=== PATIENT | female | born 1990 | race Two or more races ===

== ENCOUNTER → 2024-08-03 | Emergency (ER) | payer OTHER ==
[~2024-08-03] VITALS: Ht 165.1 cm; Wt 74.8 kg
[~2024-08-03] MED LIST: PRENATABS RX T1 EACH
[2024-08-03 17:24] LABS: HEMATOCRIT 36.7 % (36.0-45.00); HEMOGLOBIN 12.4 g/dL (12.0-15.00); MEAN CELL VOLUME 88.4 fL (80.00-100.00); MEAN CORPUSCULAR HEMOGLOBIN 29.8 pg (27.00-32.0); MEAN CORPUSCULAR HGB CONC 33.7 g/dl (32.0-36.0); PLATELET COUNT 261 K/uL (150-450); RED BLOOD COUNT 4.15 M/uL (4.00-6.00)
[2024-08-03 17:37] LABS: URINE APPEARANCE Clear; URINE BACTERIA 2021.7 uL (0.0-1933); URINE BILIRRUBIN Negative (NEGATIVE); URINE BLOOD Negative; URINE COLOR Yellow; URINE EPITHELIAL CELLS 43.9 uL (0.0-38.8); URINE GLUCOSE Negative (NEGATIVE); URINE KETONE Trace (NEGATIVE); URINE LEUKOCYTE Negative; URINE NITRATE Negative; URINE PROTEIN Negative (NEGATIVE); URINE RBC 12.9 uL (0.0-20.8); URINE WBC 4.5 uL (0.0-23.2)
[2024-08-03 17:45] LABS: CREATININE SERUM 0.59 mg/dL (0.55-1.02); GFR 118.12; POTASSIUM 4.15 mEq/L (3.5-5.1)
== END | disposition home or self-care (01) ==
LOC: ER 15:14
PROVIDERS: General Practice
DX: O23.31 Infections of other parts of urinary tract in pregnancy, first trimester (principal); Z3A.01 Less than 8 weeks gestation of pregnancy; N39.0 Urinary tract infection, site not specified; K29.70 Gastritis, unspecified, without bleeding; Z91.040 Latex allergy status

== ENCOUNTER 2024-09-16 23:32 | Emergency (ER) | payer OTHER ==
[~2024-09-16] VITALS: Ht 165.1 cm; Wt 72.6 kg
[2024-09-17] MEDS ORDERED: METOCLOPRAMIDE HCL 5 MG/ML VIAL IM STA (01:03)
[2024-09-17] MEDS ORDERED: PROMETHAZINE HCL 25 MG/ML AMPUL IM STA (01:03)
[2024-09-17] MEDS ORDERED: METOCLOPRAMIDE HCL 5 MG/ML VIAL ONE (01:04)
[2024-09-17] MEDS ORDERED: PROMETHAZINE HCL 25 MG/ML AMPUL ONE (01:04)
[2024-09-17] MEDS ORDERED: FAMOTIDINE/PF 20 MG/2 ML VIAL ONE (01:04)
[2024-09-17] MEDS ORDERED: 0.9 % SODIUM CHLORIDE 1,000 ML IV STA (01:04)
[2024-09-17] MEDS ORDERED: FAMOtidine 10 MG/ML (4ML VIAL) IV PUSH STA (01:05)
[2024-09-17 01:52] LABS: BASO % 0.2 % (0.1-1.2); EOS # 0.21 (0.04-0.54); EOS % 2.1 % (0.7-7.0); HEMATOCRIT 34.8 % (34.1-44.9); HEMOGLOBIN 11.9 g/dL (11.2-15.7); LYMPH # 1.67 (1.18-3.74); LYMPH % 17.1 % (19.3-53.1); MEAN CORPUSCULAR HEMOGLOBIN 29.3 pg (25.6-32.2); MONO # 0.79 (0.24-0.82); MONO % 8.1 % (4.7-12.5); NEUT # 7.04 (1.56-6.13); NEUT % 72.1 % (34.0-71.1); PLATELET COUNT 236 K/uL (163-369); RED BLOOD COUNT 4.06 M/uL (3.93-5.22); RED CELL DISTRIBUTION WIDTH 13.2 % (11.6-14.4)
[2024-09-17 02:04] LABS: ALBUMIN 3.3 gm/dL (3.4-5.0); BILIRUBIN TOTAL 0.27 mg/dL (0.3-1.2); CALCIUM 9.2 mg/dL (8.5-10.1); GFR 184.97; GLOBULINA 4.2 G/DL (2.4-3.5); POTASSIUM 3.51 mEq/L (3.5-5.1); TOTAL PROTEIN 7.5 gm/dL (6.4-8.2)
[2024-09-17 02:08] LABS: CREATININE SERUM 0.4 mg/dL (0.55-1.02)
== END 2024-09-17 03:28 | disposition home or self-care (01) ==
LOC: ER 23:32
DX: O21.0 Mild hyperemesis gravidarum (principal); Z3A.14 14 weeks gestation of pregnancy; Z91.040 Latex allergy status
CPT/HCPCS: 36415; 96365; 96366; 96372; 99282; J2550; J2765; J3490; J7030

== ENCOUNTER 2024-09-30 11:31 | Outpatient (CLI) | payer OTHER | END 2024-09-30 11:37 | disposition home or self-care (01) | LOC: PRENATAL 11:31 | PROVIDERS: ATTEND Obstetrics & Gynecology Maternal & Fetal Medicine | DX: O36.80X0 Pregnancy with inconclusive fetal viability, not applicable or unspecified (principal); Z36.82 Encounter for antenatal screening for nuchal translucency; Z3A.15 15 weeks gestation of pregnancy ==

== ENCOUNTER 2024-11-02 08:30 | Outpatient (CLI) | payer OTHER | END 2024-11-02 08:31 | disposition home or self-care (01) | LOC: PRENATAL 08:30 | PROVIDERS: ATTEND Obstetrics & Gynecology | DX: O44.00 Complete placenta previa NOS or without hemorrhage, unspecified trimester (principal); Z3A.20 20 weeks gestation of pregnancy ==

== ENCOUNTER → 2025-02-02 12:57 | Outpatient (CLI) | payer OTHER | END | disposition home or self-care (01) | LOC: PRENATAL 12:57 | PROVIDERS: ATTEND Obstetrics & Gynecology Maternal & Fetal Medicine | DX: O26.849 Uterine size-date discrepancy, unspecified trimester (principal); O36.8130 Decreased fetal movements, third trimester, not applicable or unspecified; O99.019 Anemia complicating pregnancy, unspecified trimester; Z3A.33 33 weeks gestation of pregnancy ==